=== PATIENT | male | born 1950 | race Asian ===

== ENCOUNTER 2017-11-25 12:32 | Emergency (ER) | payer BC ==
[2017-11-25 13:45] LABS: BILIRUBIN, URINE MANUAL OBSCURED (NEGATIVE); BLOOD URINE MANUAL RFX POSITIVE (NEGATIVE); GLUCOSE, URINE (UA) MANUAL OBSCURED mg/dL (NEGATIVE); KETONE, URINE MANUAL OBSCURED mg/dL (NEGATIVE); MICROSCOPIC INDICATED? RFX YES (NO); NITRITE, URINE MANUAL RFX OBSCURED (NEGATIVE); PROTEIN, URINE MANUAL REFLEX OBSCURED mg/dL (NEGATIVE); SP GRAVITY,URINE MANUAL REFLEX 1.025 (1.002-1.035); UROBILINOGEN, URINE MANUAL OBSCURED mg/dl (NORMAL)
[2017-11-25 13:53] LABS: RBC, URINE TNTC /hpf (0-3)
[2017-11-25 13:54] LABS: MICROSCOPIC EXAM PERFORMED
[2017-11-25] MEDS: NS 1,000 ML IV (16:46)
[2017-11-25] MEDS: BENZONATATE 100 MG CAP PO (16:47)
[2017-11-25 16:50] LABS: BASO % 0.4 % (0.0-1.0); EOS # 0.1 10^3/uL (0.0-0.50); EOS % 0.7 % (0.0-3.0); HEMATOCRIT 43.9 % (42.0-52.0); IMMATURE GRANULOCYTE % 0.3 % (0-3.0); LYMPH # 2.5 10^3/uL (1.5-4.5); LYMPH % 33.5 % (24.0-44.0); MEAN CORPUSCULAR HEMOGLOBIN 33.8 pg (27.0-33.0); MEAN CORPUSCULAR HGB CONC 34.2 g/dl (32.0-36.5); MEAN CORPUSCULAR VOLUME 98.9 fl (80.0-96.0); MONO # 0.7 10^3/uL (0.0-0.8); MONO % 8.8 % (0.0-5.0); NEUTROPHILS # 4.1 10^3/uL (1.8-7.7); NEUTROPHILS % 56.3 % (36.0-66.0); PLATELET COUNT, AUTOMATED 207 10^3/uL (150-450); RED BLOOD COUNT 4.44 10^6/uL (4.30-6.10); RED CELL DISTRIBUTION WIDTH 12.3 % (11.5-14.5); WHITE BLOOD COUNT 7.4 10^3/uL (4.0-10.0)
[2017-11-25 17:03] LABS: INR 0.92; PARTIAL THROMBOPLASTIN TIME 28.3 SECONDS (26.8-37.9); PROTHROMBIN TIME 12.4 SECONDS (12.4-14.5)
[2017-11-25 17:20] LABS: ALBUMIN/GLOBULIN RATIO 1.03 (1.00-1.93); ALKALINE PHOSPHATASE 93 U/L (45-117); ALT/SGPT 39 U/L (12-78); ANION GAP 3 MEQ/L (8-16); AST/SGOT 22 U/L (7-37); BILIRUBIN,TOTAL 0.5 MG/DL (0.2-1.0); BLOOD UREA NITROGEN 16 MG/DL (7-18); CARBON DIOXIDE LEVEL 33 MEQ/L (21-32); CHLORIDE LEVEL 107 MEQ/L (98-107); CREATININE FOR GFR 0.76 MG/DL (0.70-1.30); GLOMERULAR FILTRATION RATE > 60.0 (>49); GLUCOSE, FASTING 99 MG/DL (70-100); POTASSIUM SERUM 4.9 MEQ/L (3.5-5.1); SODIUM LEVEL 143 MEQ/L (136-145); TOTAL PROTEIN 7.9 GM/DL (6.4-8.2)
[2017-11-25] MEDS: IPRATROPIUM 0.5MG/ALBUTEROL 2.5MG INH SOL UD 3ML (DUONEB)(J7620) NEB (18:30)
== END 2017-11-25 19:34 | disposition home or self-care (01) ==
LOC: M ED 12:32
DX: J20.8 Acute bronchitis due to other specified organisms (principal); R31.9 Hematuria, unspecified; M19.90 Unspecified osteoarthritis, unspecified site; Z87.442 Personal history of urinary calculi; Z87.891 Personal history of nicotine dependence
CPT/HCPCS: 71046

== ENCOUNTER → 2017-12-03 | Outpatient (CLI) | payer BC ==
[~2017-12-03] MED LIST: ISOVUE-370 76% 100ML VIAL (Q9967) As Ordered
== END ==
LOC: M RAD 17:44
DX: R31.0 Gross hematuria (principal); N20.0 Calculus of kidney; N32.3 Diverticulum of bladder; K57.30 Diverticulosis of large intestine without perforation or abscess without bleeding

== ENCOUNTER → 2017-12-26 | Outpatient (REF) | payer BC ==
[2017-12-26 12:49] LABS: HEMOGLOBIN 14.8 g/dl (14.0-18.0); MEAN CORPUSCULAR HEMOGLOBIN 33.3 pg (27.0-33.0); MEAN CORPUSCULAR HGB CONC 33.6 g/dl (32.0-36.5); MEAN CORPUSCULAR VOLUME 98.9 fl (80.0-96.0); PLATELET COUNT, AUTOMATED 203 10^3/uL (150-450); RED BLOOD COUNT 4.45 10^6/uL (4.30-6.10); RED CELL DISTRIBUTION WIDTH 12.8 % (11.5-14.5); WHITE BLOOD COUNT 5.1 10^3/uL (4.0-10.0)
[2017-12-26 12:59] LABS: INR 0.88
[2017-12-26 13:19] LABS: ANION GAP 8 MEQ/L (8-16); BLOOD UREA NITROGEN 20 MG/DL (7-18); CARBON DIOXIDE LEVEL 27 MEQ/L (21-32); CHLORIDE LEVEL 107 MEQ/L (98-107); CREATININE FOR GFR 0.75 MG/DL (0.70-1.30); GLOMERULAR FILTRATION RATE > 60.0 (>49); GLUCOSE, FASTING 84 MG/DL (70-100); POTASSIUM SERUM 4.8 MEQ/L (3.5-5.1); SODIUM LEVEL 142 MEQ/L (136-145)
== END ==
LOC: M SMT 12:34
DX: D49.4 Neoplasm of unspecified behavior of bladder (principal); Z01.818 Encounter for other preprocedural examination; N39.0 Urinary tract infection, site not specified
CPT/HCPCS: 80048

== ENCOUNTER → 2017-12-26 | Outpatient (CLI) | payer BC | LOC: M ADAMS 10:57 | DX: Z01.810 Encounter for preprocedural cardiovascular examination (principal); D49.4 Neoplasm of unspecified behavior of bladder ==

== ENCOUNTER 2018-01-03 08:54 | Day surgery (SDC) | payer BC ==
[~2018-01-03 08:54] MED LIST changes: +GLYCOPYRROLATE INJ 0.2 MG/ML 2 ML VIAL As Ordered; -ISOVUE-370 76% 100ML VIAL (Q9967) As Ordered; +KETOROLAC 60 MG/2 ML VIAL (J1885) As Ordered; +LIDOCAINE 2% INJ 100 MG/5 ML SDV (FOR ANES.) As Ordered; +MIDAZOLAM INJ 2 MG/2 ML VIAL (J2250) As Ordered; +NEOSTIGMINE 10 MG/10 ML VIAL (J2710) As Ordered; +ONDANSETRON 4MG/2ML VIAL (J2405) As Ordered; +PROPOFOL 200 MG/20 ML VIAL As Ordered; +ROCURONIUM BROMIDE 50 MG/5 ML VIAL As Ordered; +dexameTHASONE 4 MG/ML 1ML VIAL (J1100) As Ordered; +fentaNYL 100 MCG/2 ML INJECTION (J3010) As Ordered
[2018-01-03] MEDS ORDERED: LIDOCAINE 1% MDV 20ML VIAL SQ (09:00)
[2018-01-03] MEDS: LR 1,000 ML IV (09:42)
[2018-01-03] MEDS ORDERED: PHENYLephrine HCL 500 MCG/5 ML (100MCG/ML) SYRINGE (J2370) As Ordered (12:03)
[2018-01-03] MEDS ORDERED: ONDANSETRON 4MG/2ML VIAL (J2405) As Ordered (12:05)
[2018-01-03] MEDS ORDERED: dexameTHASONE 4 MG/ML 1ML VIAL (J1100) As Ordered (12:06)
[2018-01-03] MEDS ORDERED: ACETAMINOPHEN TAB 650MG DOSE (2X325MG) PO (13:30)
[2018-01-03] MEDS ORDERED: LR 1,000 ML IV (13:30)
[2018-01-03] MEDS ORDERED: ONDANSETRON 4MG/2ML VIAL (J2405) IV (13:30)
[2018-01-03] MEDS ORDERED: PERCOCET 5MG/325MG TAB PO (13:30)
[2018-01-03] MEDS ORDERED: HYDROmorphone HCL 1 MG/ML SYRINGE (J1170) IV (13:30)
[2018-01-03] MEDS ORDERED: fentaNYL 100 MCG/2 ML INJECTION (J3010) IV (13:30)
== END 2018-01-03 15:47 | disposition home or self-care (01) ==
LOC: M SDC 08:54
DX: D09.0 Carcinoma in situ of bladder (principal); E78.00 Pure hypercholesterolemia, unspecified; Z79.899 Other long term (current) drug therapy; Z87.891 Personal history of nicotine dependence
CPT/HCPCS: 52235

== ENCOUNTER → 2018-09-10 | Outpatient (REF) | payer BC | LOC: M SMT 17:17 | DX: C67.9 Malignant neoplasm of bladder, unspecified (principal) | CPT/HCPCS: 88108 ==

== ENCOUNTER → 2018-12-29 | Outpatient (REF) | payer BC ==
[~2018-12-29] MED LIST changes: +CHERSYP3 PO; +GLUCTAB4 PO; -GLYCOPYRROLATE INJ 0.2 MG/ML 2 ML VIAL As Ordered; -KETOROLAC 60 MG/2 ML VIAL (J1885) As Ordered; -LIDOCAINE 2% INJ 100 MG/5 ML SDV (FOR ANES.) As Ordered; -MIDAZOLAM INJ 2 MG/2 ML VIAL (J2250) As Ordered; -NEOSTIGMINE 10 MG/10 ML VIAL (J2710) As Ordered; +NITR100C39 PO; -ONDANSETRON 4MG/2ML VIAL (J2405) As Ordered; +PROAAER10 INH; -PROPOFOL 200 MG/20 ML VIAL As Ordered; -ROCURONIUM BROMIDE 50 MG/5 ML VIAL As Ordered; +TESS100C PO; -dexameTHASONE 4 MG/ML 1ML VIAL (J1100) As Ordered; -fentaNYL 100 MCG/2 ML INJECTION (J3010) As Ordered
== END ==
LOC: M SMT 17:15
PROVIDERS: ATTEND Urology
DX: C67.9 Malignant neoplasm of bladder, unspecified (principal)

== ENCOUNTER 2019-01-22 08:55 | Day surgery (SDC) | payer BC ==
[~2019-01-22] VITALS: Ht 177.8 cm; Wt 94.8 kg
[~2019-01-22 08:55] MED LIST changes: +LIDOCAINE 1% MDV 20ML VIAL SQ PRN
[2019-01-22] MEDS ORDERED: LIDOCAINE 2% INJ 100 MG/5 ML SDV (FOR ANES.) As Ordered ONE (10:16)
[2019-01-22] MEDS ORDERED: PROPOFOL 200 MG/20 ML VIAL As Ordered ONE (10:16)
[2019-01-22] MEDS ORDERED: METOCLOPRAMIDE INJ 10MG/2ML VIAL (J2765) As Ordered ONE (10:16)
[2019-01-22] MEDS ORDERED: fentaNYL 100 MCG/2 ML INJECTION (J3010) As Ordered ONE ×2 (10:16→12:54)
[2019-01-22] MEDS ORDERED: ONDANSETRON 4MG/2ML VIAL (J2405) As Ordered ONE (10:16)
[2019-01-22] MEDS ORDERED: MIDAZOLAM INJ 2 MG/2 ML VIAL (J2250) As Ordered ONE (10:16)
[2019-01-22] MEDS ORDERED: CONRAY-60 60% 50ML VIAL (Q9961) As Ordered ONE (10:36)
[2019-01-22] MEDS ORDERED: LR 1,000 ML IV ONE (11:00)
--- NOTE | 2019-01-22 12:15 | REP ---
Retrograde pyelogram: A series of three intraoperative floor. The views are performed during placement of a right and left ureteral stents. The final film demonstrates both right and left ureteral stent. Proximal and distal pigtails to be in satisfactory locations bilaterally. Fluoroscopic exposure time is 30 seconds. Fluoroscopic images are performed last image hold technology and require no additional radiation. Electronically Signed by Ebenezer Rowan MD 01/22/2019 12:07 P
[2019-01-22] MEDS ORDERED: PERCOCET 5MG/325MG TAB As Ordered ONE (12:54)
[2019-01-22] MEDS: PERCOCET 5MG/325MG TAB PO PRN ×2 (12:55→13:25)
[2019-01-22] MEDS: fentaNYL 100 MCG/2 ML INJECTION (J3010) IV PRN ×4 (12:55→13:17)
[2019-01-22] MEDS ORDERED: HYDROMORPHONE HCL 0.5 MG/ 0.5 ML SYRINGE (J1170 PER 1) IV PRN (13:00)
[2019-01-22] MEDS ORDERED: ONDANSETRON 4MG/2ML VIAL (J2405) IV PRN (13:00)
[2019-01-22] MEDS ORDERED: LR 1,000 ML IV SCH (13:00)
[2019-01-22] MEDS ORDERED: PERCOCET 5MG/325MG TAB PO PRN (13:15)
[2019-01-22] MEDS ORDERED: MORPHINE 4 MG/ML 1ML VIAL/SYRINGE (J2270) IV ONE ×4 (14:34→15:00)
[2019-01-22] MEDS ORDERED: MORPHINE 4 MG/ML 1ML VIAL/SYRINGE (J2270) As Ordered ONE (14:35)
[2019-01-22] MEDS ORDERED: oxyBUTYnin 5 MG TAB PO ONE ×2 (14:45→16:00)
--- NOTE | 2019-01-22 15:00 | RO ---
DATE OF PROCEDURE: 01/22/2019 PREPROCEDURE DIAGNOSIS: Bladder cancer, abnormal urine cytology. POSTPROCEDURE DIAGNOSIS: Bladder cancer, abnormal urine cytology. PROCEDURE: Cystoscopy, bladder biopsies, bilateral ureteroscopy, bilateral retrograde pyelogram with intraoperative interpretation of images, bilateral ureteral stent placement. SURGEON: Jj Lepe MD ROOFER VINYL COATING: None. ANESTHESIA: General. OPERATIVE INDICATIONS: This 68-year-old male with high grade bladder cancer, non muscle invasive, and has been treated with BCG intravesical therapy. On a recent surveillance cystoscopy, we obtained a urine cytology and that returned positive for malignancy. His cystoscopy of note, was unremarkable. He was brought to the operating room today to investigate the source of the abnormal urine cytology. DESCRIPTION OF PROCEDURE: The patient was brought to the operating room and general anesthesia was induced. Prophylactic antibiotics were infused. He was then placed in dorsal lithotomy position, prepped and draped in the usual sterile fashion. At this point, a rigid cystoscope was inserted through the urethral meatus and advanced into the bladder. Of note, there were no abnormal findings in he urethra. Within the prostatic urethra, there was bilobar hyperplasia with no abnormalities. The bladder was then thoroughly examined with both the 30 and 70 degree lenses and no bladder tumors were seen. There were no concerning lesions seen. Of note, the patient had a few small bladder diverticula and all of these were examined and no definite abnormalities were seen. On the right wall near an opening to a bladder diverticulum there was a little bit of redness that looked a little bit different than the rest of the mucosa. At this point, an open ended ureteral catheter was inserted into the right ureteral orifice and I then flushed saline up the ureter and into the kidney. I then withdrew the fluid back for a right renal pelvic washing and this was sent for cytology. A wire was then advanced up the right collecting system and then I advanced the access sheath over the wire. I went up the access sheath with a flexible ureteroscope. He had evidence of narrowing in the proximal ureter. There were no abnormalities seen. The right kidney was thoroughly examined and only a few very tiny stone fragments were seen. There were no tumors or mucosal lesions seen. A retrograde pyelogram was performed notable for mild right hydronephrosis with no extravasation. I then withdrew the ureteroscope along with the access sheath and no abnormalities were seen within the ureter. At this point, I then advanced a 6 Sinhala by 22-32 cm JJ ureteral stent up the right collecting system. The wire was then removed and there were adequate curls of the stent in the right renal pelvis and in the bladder. At this point, I then advanced an open ended ureteral catheter into the left ureter. I flushed saline up the left ureter and then withdrew the fluid from the left renal pelvis. It was sent for left renal pelvic washing. A wire was then advanced up the left collecting system and then I advanced a ureteral access sheath over the wire. I went up the access sheath with a flexible ureteroscope and examined the kidney thoroughly. There were no tumors or mucosal lesions seen. There were a few very tiny stone fragments seen. I shot a retrograde pyelogram and it was notable for mild to moderate left hydronephrosis. There was no extravasation. I then withdrew the ureteroscope along with access sheath and no abnormalities were seen within the ureter. I then utilized the wire to advance a 6 Sinhala by 22-32 cm JJ ureteral stent up the left collecting system. The wire was then removed and there were adequate curls of the stent in the left renal pelvis and in the bladder. At this point, I obtained a biopsy of the red area near the opening of the diverticulum on the right wall. This was sent for biopsy near diverticulum on the right wall. I then obtained several random bladder biopsies to be sent as random bladder biopsies. Once that done, the biopsy areas were then cauterized using a Bugbee until there was good hemostasis. Once satisfied with hemostasis the bladder was emptied of all fluids and this marked conclusion of the procedure. The patient was then taken out of dorsal lithotomy position, awakened from anesthesia and transferred to the recovery room in stable condition. ESTIMATED BLOOD LOSS: 5 mL. COMPLICATIONS: None. SPECIMENS: Renal pelvis washings from right and left, random bladder biopsies, biopsy near diverticulum on the right wall. PLAN: The patient will follow-up in the clinic for pathology results. I will leave the stents in and remove those in the clinic as well in a few weeks. BRENTON
[2019-01-22] MEDS ORDERED: KETOROLAC 30 MG/ML VIAL (J1885) As Ordered ONE (15:59)
[2019-01-22] MEDS ORDERED: KETOROLAC 30 MG/ML VIAL (J1885) IV ONE (16:15)
[2019-01-22 16:40] VITALS: BP 136/90
== END 2019-01-22 16:40 | disposition home or self-care (01) ==
LOC: M SDC 08:55
PROVIDERS: ATTEND Urology
DX: C67.9 Malignant neoplasm of bladder, unspecified (principal); R82.8 Abnormal findings on cytological and histological examination of urine; M54.5 Low back pain; Z87.891 Personal history of nicotine dependence; Z79.899 Other long term (current) drug therapy
CPT/HCPCS: 52204; 52332; 74420; 88108; 88305; 88313; C1769; C1894; C2617; J0690; J1885; J2250; J2270; J2405; J2765; J3010; Q9961

== ENCOUNTER → 2019-05-18 | Outpatient (REF) | payer BC ==
[~2019-05-18] MED LIST changes: -LIDOCAINE 1% MDV 20ML VIAL SQ PRN
== END ==
LOC: M SMT 16:53
PROVIDERS: ATTEND Urology
DX: C67.9 Malignant neoplasm of bladder, unspecified (principal)

== ENCOUNTER → 2019-07-06 | Outpatient (REF) | payer BC | LOC: M SMT 18:50 | PROVIDERS: ATTEND Urology | DX: Z01.818 Encounter for other preprocedural examination (principal); C67.9 Malignant neoplasm of bladder, unspecified; N32.3 Diverticulum of bladder; N39.0 Urinary tract infection, site not specified ==

== ENCOUNTER 2019-07-16 10:37 | Inpatient (IN) | payer BC ==
[~2019-07-16] VITALS: Ht 177.8 cm; Wt 92.9 kg
[~2019-07-16 10:37] MED LIST changes: +HEPARIN SOD (PORCINE) 5000 UNITS/ML VIAL SQ ONE; +LIDOCAINE 1% MDV 20ML VIAL SQ PRN; +LR 1,000 ML IV ONE; +ceFAZolin SOD 2 GM in IV 1 EA IV ONE
[2019-07-16] MEDS ORDERED: LIDOCAINE 1% SDV INJ 30 ML VIAL As Ordered ONE ×2 (11:17→17:13)
[2019-07-16] MEDS ORDERED: BUPIVACAINE HCL 0.25% 30 ML VIAL As Ordered ONE ×2 (11:17→17:13)
[2019-07-16] MEDS ORDERED: NS 1,000 ML IV SCH (17:40)
[2019-07-16] MEDS ORDERED: ONDANSETRON 4MG/2ML VIAL (J2405) IV PRN ×2 (17:45→23:00)
[2019-07-16] MEDS ORDERED: ACETAMINOPHEN TAB 650MG DOSE (2X325MG) PO PRN (17:45)
[2019-07-16] MEDS ORDERED: MORPHINE 4 MG/ML 1ML VIAL/SYRINGE (J2270) IV PRN (17:45)
[2019-07-16] MEDS ORDERED: PERCOCET 5MG/325MG TAB PO PRN ×2 (17:45→23:00)
[2019-07-16] MEDS ORDERED: PROPOFOL 200 MG/20 ML VIAL As Ordered ONE ×2 (18:17→22:22)
[2019-07-16] MEDS ORDERED: ROCURONIUM BROMIDE 50 MG/5 ML VIAL As Ordered ONE ×2 (18:17→20:07)
[2019-07-16] MEDS ORDERED: dexameTHASONE 4 MG/ML 1ML VIAL (J1100) As Ordered ONE (18:17)
[2019-07-16] MEDS ORDERED: MIDAZOLAM INJ 2 MG/2 ML VIAL (J2250) As Ordered ONE (18:17)
[2019-07-16] MEDS ORDERED: fentaNYL 250 MCG/5 ML INJECTION (J3010) As Ordered ONE (18:17)
[2019-07-16] MEDS ORDERED: ONDANSETRON 4MG/2ML VIAL (J2405) As Ordered ONE (18:17)
[2019-07-16] MEDS ORDERED: SUGAMMADEX SODIUM 500 MG/5 ML VIAL (BRIDION) As Ordered ONE (18:17)
[2019-07-16] MEDS ORDERED: LIDOCAINE 2% INJ 100 MG/5 ML SDV (FOR ANES.) As Ordered ONE (18:17)
[2019-07-16] MEDS ORDERED: HYDROmorphone HCL 2 MG/ML 1ML VIAL (J1170) As Ordered ONE (19:02)
[2019-07-16] MEDS ORDERED: ceFAZolin 2 GM/D5W 50 ML IV BAG (J0690 PER 500MG) As Ordered ONE (21:59)
[2019-07-16] MEDS ORDERED: HYDROMORPHONE HCL 0.5 MG/ 0.5 ML SYRINGE (J1170 PER 1) IV PRN (23:00)
[2019-07-16] MEDS ORDERED: LR 1,000 ML IV SCH (23:00)
[2019-07-16] MEDS ORDERED: fentaNYL 100 MCG/2 ML INJECTION (J3010) IV PRN (23:00)
--- NOTE | 2019-07-16 23:12 | ROOPDOC ---
[facility] Report Of Operation Report of Operation DATE OF PROCEDURE: 07/16/19 PREPROCEDURE DIAGNOSES: Bladder Diverticulum, Bladder Cancer. POSTPROCEDURE DIAGNOSES: Bladder Diverticulum, Bladder Cancer. PROCEDURE: Robotic-assisted Laparoscopic Partial Cystectomy and Bladder Diverticulectomy. SURGEON: Juanjo Asencio MD SPECIAL INVESTIGATOR: None ANESTHESIA: General. 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 He was brought to the operating room today for the above procedure. DESCRIPTION OF PROCEDURE: The patient was brought to the operating room and general anesthesia was induced. Prophylactic antibiotics were infused. He was then placed in the supine position and prepped and draped in the usual sterile fashion. At this point, a Meek catheter was inserted into the bladder and the balloon was filled with 10 mL of sterile water. We then made a midline incision just above the umbilicus for an 8 mm port. A Veress needle was utilized to achieve pneumoperitoneum. Next, an 8 mm port was inserted into the incision and subsequently a camera was inserted. There were no injuries from the Veress needle or initial trocar placement. Then three robotic ports were placed in the usual configuration in line just below the level of the umbilicus. A 12 mm assistant director of financial aid port was inserted lateral to the camera port. Once all the ports were placed, the robot was docked. Additional lysis of adhesions between the sigmoid colon and abdominal wall was then performed. The right side of the bladder was then released from the anterior abdominal wall using electrocautery. The bladder was then filled with 350cc of normal saline and the right side of the bladder was dissected posteri nael. I kept dissecting until the large diverticulum was identified. The diverticulum was then carefully dissected until the neck of the diverticulum could be identified. When it was identified, Weck clips were placed on it to ligate it and then it was transected away from the bladder, leaving an approximately 4-5cm cystotomy. The diverticulum was then dissected on all sides using a combination of cold scissors and electrocautery until it was completely free. Once free, it was placed in an Endocatch bag for future retrieval. The cystotomy was then closed in 2 layers using running 2-0 Vicryl suture. The closure was then tested by filling the bladder with normal saline and the closure was watertight. At this point, a Laith-Connelly drain was brought in through the left robotic port skin site and the drain was positioned lateral to the right side of the bladder. The robot was then undocked. The specimen was then extracted out of the abdomen through the assistant director of financial aid port. A Mariano fascial closure device was utilized to place a #0 Vicryl suture through the fascia of the 12 mm assistant director of financial aid port. The drain was secured to the skin with #2-0 Ethilon suture. Next, all the remaining ports were removed and there did not appear to be any bleeding from any of the port sites. The previously placed #0 Vicryl free ties through the assistant director of financial aid port were then tied down and all incisions were irrigated. Last, all of the incisions were closed with running subcuticular #4-0 Monocryl sutures. Local anesthesia was applied. Dermabond was then applied to the incisions. This marked the conclusion of the procedure. The patient was then awakened from anesthesia and transported to the recovery room in stable condition. ESTIMATED BLOOD LOSS: 50 mL. COMPLICATIONS: None. SPECIMENS: Bladder diverticulum. PLAN: The patient will be admitted to the hospital postoperatively, and he will likely be discharged home within the next 1-2 days. JUANJO ASENCIO MD Jul 16, 2019 23:12
[2019-07-16 23:33] LABS: HEMATOCRIT 42.1 % (42.0-52.0); HEMOGLOBIN 14.3 g/dl (13.5-17.5); MEAN CORPUSCULAR HEMOGLOBIN 34.2 pg (27.0-33.0); MEAN CORPUSCULAR VOLUME 100.7 fl (80.0-96.0); PLATELET COUNT, AUTOMATED 206 10^3/uL (150-450); RED BLOOD COUNT 4.18 10^6/uL (4.30-6.10); WHITE BLOOD COUNT 13.5 10^3/uL (4.0-10.0)
[2019-07-16 23:54] VITALS: BP 130/74
[2019-07-16 23:57] LABS: BLOOD UREA NITROGEN 14 MG/DL (7-18); CALCIUM LEVEL 7.9 MG/DL (8.8-10.2); CARBON DIOXIDE LEVEL 27 MEQ/L (21-32); CHLORIDE LEVEL 108 MEQ/L (98-107); CREATININE FOR GFR 0.83 MG/DL (0.70-1.30); GLOMERULAR FILTRATION RATE > 60.0 (>49); GLUCOSE, FASTING 137 MG/DL (70-100); POTASSIUM SERUM 4.2 MEQ/L (3.5-5.1); SODIUM LEVEL 142 MEQ/L (136-145)
[2019-07-17] VITALS (11 sets, daily range): BP systolic 96–128; BP diastolic 60–81
[2019-07-17] MEDS: HEPARIN SOD (PORCINE) 5000 UNITS/ML VIAL SC SCH ×3 (00:59→13:49)
[2019-07-17] MEDS: DOCUSATE SODIUM 100 MG CAP PO SCH ×2 (00:59→09:17)
[2019-07-17] MEDS: ceFAZolin SOD 1 GM in D5W MINI-BAG PLUS 50 ML IV SCH ×2 (01:00→09:17)
[2019-07-17] MEDS: PERCOCET 5MG/325MG TAB PO PRN ×4 (02:31→16:28)
[2019-07-17 05:57] LABS: HEMATOCRIT 43.3 % (42.0-52.0); HEMOGLOBIN 14.1 g/dl (13.5-17.5); MEAN CORPUSCULAR HEMOGLOBIN 32.3 pg (27.0-33.0); MEAN CORPUSCULAR HGB CONC 32.6 g/dl (32.0-36.5); MEAN CORPUSCULAR VOLUME 99.3 fl (80.0-96.0); PLATELET COUNT, AUTOMATED 215 10^3/uL (150-450); RED BLOOD COUNT 4.36 10^6/uL (4.30-6.10)
[2019-07-17 06:18] LABS: BLOOD UREA NITROGEN 12 MG/DL (7-18); CALCIUM LEVEL 8.2 MG/DL (8.8-10.2); CARBON DIOXIDE LEVEL 27 MEQ/L (21-32); CHLORIDE LEVEL 107 MEQ/L (98-107); CREATININE FOR GFR 0.76 MG/DL (0.70-1.30); GLOMERULAR FILTRATION RATE > 60.0 (>49); GLUCOSE, FASTING 125 MG/DL (70-100); POTASSIUM SERUM 4.3 MEQ/L (3.5-5.1); SODIUM LEVEL 140 MEQ/L (136-145)
--- NOTE | 2019-07-17 09:04 | IPNPDOC ---
Subjective Review oF Systems Chief Complaint The patient is a 69-year-old male admitted with a reason for visit of Bladder Cancer, Bladder Diverticulum. Events since Last Encounter No acute events o/n. Patient notes very minimal pain. No n/v. Has not ambulated yet. No f/c/ns. Objective Physical Examination General Exam: Alert, Cooperative, No Acute Distress ABDOMEN EXAM: Soft, Hepatospenomegaly, Other (incisions clean/dry/intact; CARMEN draining serosanguinous output); No: Tenderness Neuro Exam: Normal Speech Psych Exam: Mental status NL, Mood NL Other physical findings catheter draining clear urine Vital Signs/I&O Vital Signs Date Time Temp Pulse Resp B/P (MAP) Pulse Ox O2 Delivery O2 Flow Rate FiO2 07/17/19 08:28 76 111/66 (81) 07/17/19 07:05 18 07/17/19 05:00 97.4 96 2.0 I&O- Last 24 Hours up to 6 AM 07/17/19 06:00 Intake Total 2550 ml Output Total 1885 ml Balance 665 ml Laboratory Data Labs 24H Laboratory Tests 2 07/16/19 23:25: Nucleated Red Blood Cells % (auto) 0.0, Anion Gap 7L, Glomerular Filtration Rate > 60.0, Blood Urea Nitrogen 14, Creatinine 0.83, Sodium Level 142, Potassium Level 4.2, Chloride Level 108H, Carbon Dioxide Level 27, Calcium Level 7.9L 07/17/19 05:39: Nucleated Red Blood Cells % (auto) 0.0, Anion Gap 6L, Glomerular Filtration Rate > 60.0, Blood Urea Nitrogen 12, Creatinine 0.76, Sodium Level 140, Potassium Level 4.3, Chloride Level 107, Carbon Dioxide Level 27, Calcium Level 8.2L CBC/BMP Laboratory Tests 07/16/19 23:25 Red Blood Count 4.18 L, Mean Corpuscular Volume 100.7 H, Mean Corpuscular Hemoglobin 34.2 H, Mean Corpuscular Hemoglobin Concent 34.0, Red Cell Distribution Width 13.5, Calcium Level 7.9 L 07/17/19 05:39 Red Blood Count 4.36, Mean Corpuscular Volume 99.3 H, Mean Corpuscular Hemoglobin 32.3, Mean Corpuscular Hemoglobin Concent 32.6, Red Cell Distribution Width 13.2, Calcium Level 8.2 L Assessment/Plan Date Seen The patient was seen on 07/17/19. Patient Summary This is a 69 y/o M POD1 s/p robotic partial cystectomy and bladder di verticulectomy. He is doing well. Labs are w/i normal limits. UOP has been very good. Plan/VTE VTE Prophylaxis Ordered?: Yes VTE Exclusion Mechanical Proph: N/A:VTE Prophy Ordered VTE Exclusion Pharmacological: N/A:VTE Prophy Ordered Plan/Urinary Catheter Urinary Catheter: Other Catheter: (catheter will need to stay in for 7-10 days) Plan - d/c IVF - percocet prn pain - strict I/Os - SCDs in bed - SQH - incentive spirometry - ambulate - advance diet as tolerated - likely discharge home later today w/ catheter and w/o drain JUANJO ASENCIO MD Jul 17, 2019 09:04
[2019-07-17] MEDS ORDERED: FLUBLOK(EGG FREE)(QUAD)INFLUENZA VACC 0.5ML SYRINGE (90682)18YRS&OLDER IM ONE (15:00)
[2019-07-17] MEDS ORDERED: PREVNAR 13 VACCINE SYRINGE (CPT CODE:90670) IM ONE (15:00)
[2019-07-17] MEDS ORDERED: CIPR500T3 PO (18:49)
[2019-07-17] MEDS ORDERED: PERCOCET PO (18:49)
[2019-07-17] MEDS ORDERED: COLA100C5 PO (18:49)
--- NOTE | 2019-07-19 19:04 | DSES ---
DATE OF ADMISSION: 07/16/2019 DATE OF DISCHARGE: 07/17/2019 ADMITTING DIAGNOSES: Bladder cancer, bladder diverticulum. DISCHARGE DIAGNOSES: Bladder cancer, bladder diverticulum. ADMITTING PHYSICIAN: Dr. Jj Lepe DISCHARGING PHYSICIAN: Dr. Jj Lepe PROCEDURES PERFORMED: Robotic assisted laparoscopic partial cystectomy with diverticulectomy. HISTORY OF PRESENT ILLNESS: This is a 69-year-old male with a history of recurrent bladder cancer, it has only been present and recurred inside the bladder diverticulum. He was brought to the operating room to have this large bladder diverticulum removed. HOSPITALIZATION COURSE: The patient's postoperative course was unremarkable. He was admitted to the regular floor after undergoing the above listed procedure on 07/16/2019. By postoperative day 1 all of his laboratories were within normal limits, and his pain was well controlled with oral pain medication. He ambulated well. He was able to tolerate a regular diet without any difficulty. His Laith-Connelly drain had minimal output and therefore was removed on postoperative day 1. He had excellent urine output through his catheter. Since he was doing well, he was deemed ready for discharge home on postoperative day 1. He was discharged home with the catheter in place with the plan for him to followup in the clinic approximately 10 days for catheter removal and to discuss the pathology results.
== END 2019-07-17 19:26 | disposition home health service (06) | DRG 441 ==
LOC: M OR 10:37 → M MSPAV 23:54
PROVIDERS: ADMIT Urology; ATTEND Urology
PROC: 8E0W4CZ Robotic Assisted Procedure of Trunk Region, Percutaneous Endoscopic Approach (ICD-10-PCS; 2019-07-16)
PROC: 0TBB4ZZ Excision of Bladder, Percutaneous Endoscopic Approach (ICD-10-PCS; principal; 2019-07-16 13:00)
DX: N32.3 Diverticulum of bladder (principal); C67.9 Malignant neoplasm of bladder, unspecified; Z79.899 Other long term (current) drug therapy; E78.5 Hyperlipidemia, unspecified

== ENCOUNTER → 2019-07-29 | Outpatient (CLI) | payer BC ==
[~2019-07-29] MED LIST changes: +CIPR500T3 PO; +COLA100C5 PO; +CYSTO-CONRAY II 17.2% 250ML VIAL (Q9958) As Ordered ONE; -HEPARIN SOD (PORCINE) 5000 UNITS/ML VIAL SQ ONE; -LIDOCAINE 1% MDV 20ML VIAL SQ PRN; -LR 1,000 ML IV ONE; +PERCOCET PO; -ceFAZolin SOD 2 GM in IV 1 EA IV ONE
--- NOTE | 2019-07-29 13:51 | REP ---
Examination Requested: Cystogram Reason For Exam: Bladder diverticulum The procedure was performed by NELL Gonzalez, under the direct supervision of Dr. Oro. The images were reviewed with Dr. Oro. The patient arrived to the department with a Meek catheter in place . 75 ml of Cysto-Conray II was instilled into the bladder in a retrograde flow. The bladder appears small and trabeculated. There is a small diverticulum on the left side. Reflux of contrast into and up the right ureter. There is no evidence of a extravasation or urethral reflux. No postvoid residual. Impression: 1. Trabeculated bladder. 2. Small left bladder diverticulum. 3. Reflux of contrast into the right ureter. 0.2 minutes of fluoroscopy time was utilized for this procedure. Some fluoroscopic images are performed with last image hold technology. These images require no additional radiation. Reviewed by NELL Beltre 07/29/2019 12:52 P Electronically Signed by Hero Oro MD 07/29/2019 01:41 P
== END ==
LOC: M RADPRO 10:42
PROVIDERS: ATTEND Urology
DX: N32.3 Diverticulum of bladder (principal)
CPT/HCPCS: 51600; 74430; Q9958

== ENCOUNTER → 2019-11-03 | Outpatient (REF) | payer BC ==
[~2019-11-03] MED LIST changes: -CYSTO-CONRAY II 17.2% 250ML VIAL (Q9958) As Ordered ONE
== END ==
LOC: M SMT 17:17
PROVIDERS: ATTEND Urology
DX: C67.9 Malignant neoplasm of bladder, unspecified (principal)

== ENCOUNTER → 2020-02-12 | Outpatient (REF) | payer BC | LOC: M SMT 16:30 | PROVIDERS: ATTEND Urology | DX: C67.9 Malignant neoplasm of bladder, unspecified (principal) ==

== ENCOUNTER → 2020-08-15 | Outpatient (REF) | payer BC, MEDICARE | LOC: M SMT 12:44 | PROVIDERS: ATTEND Urology | DX: C67.9 Malignant neoplasm of bladder, unspecified (principal) ==

== ENCOUNTER → 2020-09-26 | Outpatient (REF) | payer MEDICARE | LOC: M SFHCADAM 09:44 | PROVIDERS: ATTEND Family Medicine | DX: C67.9 Malignant neoplasm of bladder, unspecified (principal); E74.9 Disorder of carbohydrate metabolism, unspecified; E78.2 Mixed hyperlipidemia; Z12.5 Encounter for screening for malignant neoplasm of prostate ==

== ENCOUNTER → 2021-05-15 | Outpatient (REF) | payer OTHER, MEDICARE | LOC: M SMT 13:20 | PROVIDERS: ATTEND Urology | DX: C67.9 Malignant neoplasm of bladder, unspecified (principal) ==

== ENCOUNTER → 2021-06-12 | Outpatient (REF) | payer OTHER | LOC: M SMT 13:46 | PROVIDERS: ATTEND Urology | DX: C67.9 Malignant neoplasm of bladder, unspecified (principal) ==

== ENCOUNTER → 2021-12-18 | Outpatient (REF) | payer OTHER, MEDICARE | LOC: M SMT 13:02 | PROVIDERS: ATTEND Urology | DX: C67.9 Malignant neoplasm of bladder, unspecified (principal) ==

== ENCOUNTER → 2021-12-20 | Outpatient (REF) | payer OTHER, MEDICARE ==
[~2021-12-20] MED LIST changes: +CIDA500T2 PO; +MELO15TA28 PO
== END ==
LOC: M LABDRWAD 12:51
PROVIDERS: ATTEND Urology
DX: C67.9 Malignant neoplasm of bladder, unspecified (principal); Z01.818 Encounter for other preprocedural examination; N39.0 Urinary tract infection, site not specified

== ENCOUNTER → 2021-12-25 | Outpatient (CLI) | payer OTHER, MEDICARE | LOC: M LABSMTC 11:03 | PROVIDERS: ATTEND Anesthesiology | DX: Z01.818 Encounter for other preprocedural examination (principal); Z11.52 Encounter for screening for COVID-19 ==

== ENCOUNTER 2021-12-29 12:53 | Day surgery (SDC) | payer OTHER, MEDICARE ==
[~2021-12-29] VITALS: Ht 177.8 cm; Wt 92.0 kg
[~2021-12-29 12:53] MED LIST changes: +LR 1,000 ML IV ONE; +ceFAZolin SOD 2 GM in IV 1 EA IV ONE
[2021-12-29] MEDS ORDERED: ROCURONIUM BROMIDE 50 MG/5 ML VIAL As Ordered ONE (15:32)
[2021-12-29] MEDS ORDERED: fentaNYL 100 MCG/2 ML INJECTION As Ordered ONE (15:32)
[2021-12-29] MEDS ORDERED: ACETAMINOPHEN 1000MG 100ML IV BTL (OFIRMEV) (J0131 PER 10MG) As Ordered ONE (15:32)
[2021-12-29] MEDS ORDERED: propofoL 200 MG/20 ML VIAL As Ordered ONE (15:32)
[2021-12-29] MEDS ORDERED: MIDAZOLAM INJ 2MG/2ML VIAL (J2250 PER 1MG) As Ordered ONE (15:32)
[2021-12-29] MEDS ORDERED: ONDANSETRON 4MG/2ML VIAL As Ordered ONE (15:32)
[2021-12-29] MEDS ORDERED: LIDOCAINE 2% 100MG/5ML SDV (FOR ANES.) As Ordered ONE (15:32)
[2021-12-29] MEDS ORDERED: SUGAMMADEX SODIUM 500 MG/5 ML VIAL (BRIDION) As Ordered ONE (15:32)
[2021-12-29] MEDS ORDERED: dexameTHASONE 4 MG/ML 1ML VIAL (J1100 PER 1MG) As Ordered ONE (15:32)
[2021-12-29] MEDS ORDERED: mitoMYcin 40MG VIAL *UROLOGY* (J9280 PER 5MG) INTRAVESIC ONE (16:00)
[2021-12-29] MEDS ORDERED: ACETAMINOPHEN TAB 650MG DOSE (2X325MG) PO PRN (17:10)
[2021-12-29] MEDS ORDERED: ONDANSETRON 4MG/2ML VIAL IV PRN (17:10)
[2021-12-29] MEDS ORDERED: fentaNYL 100 MCG/2 ML INJECTION IV PRN (17:10)
[2021-12-29] MEDS ORDERED: METOCLOPRAMIDE INJ 10MG/2ML VIAL (J2765 PER 1) IV PRN (17:10)
[2021-12-29] MEDS ORDERED: oxyCODONE 5MG TAB PO PRN (17:10)
[2021-12-29] MEDS ORDERED: LR 1,000 ML IV SCH (17:10)
[2021-12-29 18:40] VITALS: BP 128/68
== END 2021-12-29 18:45 | disposition home or self-care (01) ==
LOC: M SDC 12:53
PROVIDERS: ATTEND Urology
DX: C67.9 Malignant neoplasm of bladder, unspecified (principal); Z87.891 Personal history of nicotine dependence; Z79.899 Other long term (current) drug therapy
CPT/HCPCS: 51720; 52234; 88305; J0131; J0690; J1100; J2250; J2405; J3010; J9280

== ENCOUNTER → 2022-01-08 | Outpatient (CLI) | payer OTHER, MEDICARE ==
[~2022-01-08] MED LIST changes: +ISOVUE-370 76% 100ML VIAL As Ordered ONE; -LR 1,000 ML IV ONE; -ceFAZolin SOD 2 GM in IV 1 EA IV ONE
== END ==
LOC: M RAD 14:49
PROVIDERS: ATTEND Urology
DX: C67.9 Malignant neoplasm of bladder, unspecified (principal)
CPT/HCPCS: 74178; Q9967

== ENCOUNTER → 2022-06-04 | Outpatient (REF) | payer OTHER, MEDICARE ==
[~2022-06-04] MED LIST changes: -ISOVUE-370 76% 100ML VIAL As Ordered ONE
== END ==
LOC: M SMT 12:48
PROVIDERS: ATTEND Urology
DX: C67.9 Malignant neoplasm of bladder, unspecified (principal)

== ENCOUNTER → 2022-06-19 | Outpatient (CLI) | payer OTHER, MEDICARE | LOC: M RAD 10:40 | PROVIDERS: ATTEND Urology | DX: N20.0 Calculus of kidney (principal); K40.90 Unilateral inguinal hernia, without obstruction or gangrene, not specified as recurrent; R91.8 Other nonspecific abnormal finding of lung field; R10.9 Unspecified abdominal pain; Z87.442 Personal history of urinary calculi ==

== ENCOUNTER → 2022-08-27 | Outpatient (CLI) | payer OTHER, MEDICARE ==
[~2022-08-27] MED LIST changes: +ISOVUE-370 76% 100ML VIAL As Ordered ONE
[2022-08-27 12:36] LABS: ALBUMIN 3.8 GM/DL (3.2-5.2); ALT/SGPT 28 U/L (12-78); BILIRUBIN,TOTAL 0.4 MG/DL (0.2-1.0); BLOOD UREA NITROGEN 15 MG/DL (7-18); CALCIUM LEVEL 9.5 MG/DL (8.8-10.2); CARBON DIOXIDE LEVEL 27 MEQ/L (21-32); CHLORIDE LEVEL 104 MEQ/L (98-107); CREATININE FOR GFR 0.75 MG/DL (0.70-1.30); GLOMERULAR FILTRATION RATE > 60.0 (>42); GLUCOSE, FASTING 110 MG/DL (70-100); POTASSIUM SERUM 4.6 MEQ/L (3.5-5.1); SODIUM LEVEL 135 MEQ/L (136-145); TOTAL PROTEIN 7.8 GM/DL (6.4-8.2)
== END ==
LOC: M RAD 10:52
PROVIDERS: ATTEND Urology
DX: R19.09 Other intra-abdominal and pelvic swelling, mass and lump (principal); C67.9 Malignant neoplasm of bladder, unspecified; K44.9 Diaphragmatic hernia without obstruction or gangrene

== ENCOUNTER → 2022-08-27 | Outpatient (REF) | payer OTHER, MEDICARE ==
[~2022-08-27] MED LIST changes: -ISOVUE-370 76% 100ML VIAL As Ordered ONE
== END ==
LOC: M SMT 13:04
PROVIDERS: ATTEND Urology
DX: C67.9 Malignant neoplasm of bladder, unspecified (principal)

== ENCOUNTER → 2022-11-16 | Outpatient (REF) | payer OTHER, MEDICARE | LOC: M SMT 16:34 | PROVIDERS: ATTEND Urology | DX: C67.9 Malignant neoplasm of bladder, unspecified (principal) ==

== ENCOUNTER → 2023-01-17 | Outpatient (REF) | payer OTHER, MEDICARE | LOC: M SFHCADAM 16:13 | PROVIDERS: ATTEND Family Medicine | DX: Z53.9 Procedure and treatment not carried out, unspecified reason (principal) ==

== ENCOUNTER → 2023-01-23 | Outpatient (REF) | payer OTHER, MEDICARE | LOC: M SFHCADAM 16:37 | PROVIDERS: ATTEND Family Medicine | DX: Z53.9 Procedure and treatment not carried out, unspecified reason (principal) ==

== ENCOUNTER → 2023-03-18 | Outpatient (REF) | payer OTHER | LOC: M SMT 13:14 | PROVIDERS: ATTEND Urology | DX: C67.9 Malignant neoplasm of bladder, unspecified (principal) ==

== ENCOUNTER → 2023-06-28 | Outpatient (REF) | payer MEDICARE | LOC: M SMT 16:48 | PROVIDERS: ATTEND Urology | DX: C67.9 Malignant neoplasm of bladder, unspecified (principal) ==

== ENCOUNTER → 2023-09-30 | Outpatient (REF) | payer MEDICARE, OTHER | LOC: M SMT 17:31 | PROVIDERS: ATTEND Urology | DX: C67.9 Malignant neoplasm of bladder, unspecified (principal) ==

== ENCOUNTER → 2023-12-30 | Outpatient (REF) | payer OTHER | LOC: M SMT 12:33 | PROVIDERS: ATTEND Urology | DX: C67.9 Malignant neoplasm of bladder, unspecified (principal) ==

== ENCOUNTER → 2024-06-29 | Outpatient (REF) | payer OTHER | LOC: M SMT 12:53 | PROVIDERS: ATTEND Urology | DX: C67.9 Malignant neoplasm of bladder, unspecified (principal) ==

== ENCOUNTER → 2025-01-18 | Outpatient (REF) | payer MEDICARE, OTHER | LOC: M SMT 12:58 | PROVIDERS: ATTEND Urology | DX: C67.9 Malignant neoplasm of bladder, unspecified (principal) ==